=== PATIENT | female | born 1960 | race African-American/Black ===

== ENCOUNTER 2022-05-09 16:37 | Outpatient (CLI) | payer BC ==
[2022-05-09 17:45] LABS: Hemoglobin 13.3 g/dL (12.0-15.5); Mean Corpuscular HGB CONC 35.4 g/dL (32.0-36.0); Mean Corpuscular Hemoglobin 38.2 pg (27.0-33.0); Mean Platelet Volume 9.4 fl (7.4-10.4); Platelet Count 339 10x3/uL (150-450); RBC Distribution Width 15.4 % (11.5-14.5); Red Blood Cell (RBC) Count 3.48 10x6/uL (3.90-5.03); White Blood Cell (WBC) Count 8.4 10x3/uL (3.5-10.5)
[2022-05-09 17:51] LABS: Anion Gap 16 mmol/L (10-20); BUN (Urea Nitrogen) 16 mg/dL (9.8-20.1); Calc. Creatinine Clearance 0 mL/min (70-130); Calcium 9.8 mg/dL (7.8-10.44); Carbon Dioxide 25 mmol/L (22-29); Chloride 103 mmol/L (98-107); Estimated GFR 57; Glucose 94 mg/dL (70-105); Potassium 5.1 mmol/L (3.5-5.1); Sodium 139 mmol/L (136-145)
== END 2022-05-09 16:38 | disposition home or self-care (01) ==
LOC: LABBT 16:37
PROVIDERS: ATTEND Neurological Surgery
DX: Z01.818 Encounter for other preprocedural examination (principal); M54.12 Radiculopathy, cervical region
CPT/HCPCS: 80048; 85027; 93005; 93010

== ENCOUNTER 2022-05-13 08:32 | Observation (INO) | payer BC ==
[2022-05-10 13:13] VITALS: BMI 23.1
[2022-05-13] MEDS ORDERED: fentaNYL PF 100 MCG/2 ML SYRINGE ONE ×2 (11:54→13:13)
[2022-05-13] MEDS ORDERED: CEFAZOLIN 2 GM VIAL ONE (12:04)
[2022-05-13] MEDS ORDERED: Sodium Chloride 0.9% 100 ML ONE (12:04)
[2022-05-13] MEDS ORDERED: PROPOFOL 200 MG/20 ML VIAL ONE (12:18)
[2022-05-13] MEDS ORDERED: NEOSTIGMINE 3 MG/3 ML SYR 3 MG/3 ML SYRINGE ONE (12:18)
[2022-05-13] MEDS ORDERED: PHENYLEPHRINE-NS 100 MCG/ML 10 ML SYRINGE ONE (12:18)
[2022-05-13] MEDS ORDERED: Rocuronium Bromide 10 MG/ML (10ML VIAL) ONE (12:18)
[2022-05-13] MEDS ORDERED: Ondansetron PF 4 MG/2 ML Vial ONE (12:18)
[2022-05-13] MEDS ORDERED: Glycopyrrolate 0.2 MG/ML 5 ML SYRINGE ONE (12:18)
[2022-05-13] MEDS ORDERED: ePHEDrine 50 MG/ML VIAL ONE (12:18)
[2022-05-13] MEDS ORDERED: Dexamethasone 20 MG/5 ML VIAL ONE (12:18)
[2022-05-13 12:35] LABS: SARS-CoV-2 NAA Rapid Test Not Detected (NotDetected)
[2022-05-13] MEDS ORDERED: traMADol HCl 50 MG TAB PO PRN (13:25)
[2022-05-13] MEDS ORDERED: Ondansetron PF 4 MG/2 ML Vial IVP PRN (13:25)
[2022-05-13] MEDS ORDERED: Milk Of Magnesia 30 ML UDCUP PO PRN (13:25)
[2022-05-13] MEDS ORDERED: Mag-Al 1200 mg/1200 mg/30 ML UDCUP PO PRN (13:25)
[2022-05-13] MEDS ORDERED: Acetaminophen/Codeine 30-300mg Tablet PO PRN (13:25)
[2022-05-13] MEDS ORDERED: Promethazine 25 MG TAB PO PRN (13:25)
[2022-05-13] MEDS ORDERED: diphenhydrAMINE 25 MG CAP PO PRN (13:25)
[2022-05-13] MEDS ORDERED: CEFAZOLIN 2 GM in Sodium Chloride 0.9% 100 ML IVPB SCH (13:30)
[2022-05-13] MEDS ORDERED: Ondansetron HCl/PF 4 MG/2 ML Vial IVP PRN (13:42)
[2022-05-13] MEDS ORDERED: Promethazine HCl 25 MG/ML VIAL IVPB PRN (13:42)
[2022-05-13] MEDS ORDERED: Promethazine HCl 25 MG/ML VIAL IM PRN (13:42)
[2022-05-13] MEDS ORDERED: FENTANYL 50 MCG/ML 1 ML VIAL ONE ×3 (13:51→14:08)
[2022-05-13] MEDS: Sodium Chloride 0.9% 1,000 ML IV SCH (14:55)
[2022-05-13] MEDS: Acetaminophen/Codeine 30-300mg Tablet PO PRN (15:02)
[2022-05-13] MEDS: Morphine 4 MG/ML VIAL SLOW IVP PRN ×2 (15:02→20:27)
[2022-05-13] MEDS: Cyclobenzaprine 10 MG TAB PO PRN (17:10)
[2022-05-13] MEDS: Gabapentin 300 MG CAP PO SCH ×2 (17:10→20:23)
[2022-05-13] MEDS: CEFAZOLIN 2 GM in Sodium Chloride 0.9% 100 ML IVPB SCH (20:22)
[2022-05-14] MEDS: Acetaminophen/Codeine 30-300mg Tablet PO PRN ×2 (00:34→08:04)
[2022-05-14] MEDS: Sodium Chloride 0.9% 1,000 ML IV SCH (02:50)
[2022-05-14] MEDS: Cyclobenzaprine 10 MG TAB PO PRN (04:30)
[2022-05-14] MEDS: CEFAZOLIN 2 GM in Sodium Chloride 0.9% 100 ML IVPB SCH (04:30)
[2022-05-14] MEDS ORDERED: Levothyroxine Sodium 50 MCG TAB PO SCH (06:00)
[2022-05-14] MEDS: Gabapentin 300 MG CAP PO SCH (08:04)
[2022-05-14 08:12] VITALS: BP 138/88; TEMP 97.1
== END 2022-05-14 08:30 | disposition home or self-care (01) ==
LOC: SDC 08:32 → SJJU 15:01
PROVIDERS: ADMIT Neurological Surgery; ATTEND Neurological Surgery
PROC: 0RG20A0 Fusion of 2 or more Cervical Vertebral Joints with Interbody Fusion Device, Anterior Approach, Anterior Column, Open Approach (ICD-10-PCS; principal; 2022-05-13)
DX: M50.121 Cervical disc disorder at C4-C5 level with radiculopathy (principal); M48.02 Spinal stenosis, cervical region; K21.9 Gastro-esophageal reflux disease without esophagitis; F17.290 Nicotine dependence, other tobacco product, uncomplicated; Z79.890 Hormone replacement therapy; Z79.899 Other long term (current) drug therapy; Z88.2 Allergy status to sulfonamides; Z20.822 Contact with and (suspected) exposure to COVID-19
CPT/HCPCS: 96374; 96375; 96376; C1713; G0378; J1100; J2270; J2405; J2704; J3010; J3490; U0002

== ENCOUNTER 2022-05-30 12:55 | Outpatient (CLI) | payer BC | END 2022-05-30 12:56 | disposition home or self-care (01) | LOC: TBSIIMAG 12:55 | PROVIDERS: ATTEND Neurological Surgery | DX: M47.22 Other spondylosis with radiculopathy, cervical region (principal); Z98.1 Arthrodesis status | CPT/HCPCS: 72040 ==

== ENCOUNTER 2022-11-07 09:07 | Outpatient (CLI) | payer BC | END 2022-11-07 09:08 | disposition home or self-care (01) | LOC: SCSMRI 09:07 | PROVIDERS: ATTEND Family Medicine | DX: M47.26 Other spondylosis with radiculopathy, lumbar region (principal); R29.890 Loss of height; M46.06 Spinal enthesopathy, lumbar region; M47.817 Spondylosis without myelopathy or radiculopathy, lumbosacral region; M51.16 Intervertebral disc disorders with radiculopathy, lumbar region; K60.2 Anal fissure, unspecified; M51.27 Other intervertebral disc displacement, lumbosacral region | CPT/HCPCS: 72100; 72148 ==

== ENCOUNTER 2023-06-27 13:01 | Outpatient (CLI) | payer BC | END 2023-06-27 13:02 | disposition home or self-care (01) | LOC: SCSRAD 13:01 | PROVIDERS: ATTEND Physician Assistant | DX: R07.89 Other chest pain (principal) | CPT/HCPCS: 71046 ==

== ENCOUNTER 2023-07-25 05:56 | Inpatient (IN) | payer BC ==
[2023-07-25 06:45] LABS: #Basophils 0.1 thou/uL (0.0-0.2); #Eosinphils 0.2 thou/uL (0.0-0.7); #Monocytes 1.4 thou/uL (0.11-0.59); #Neutrophils 8.9 thou/uL (1.40-6.50); %Basophils 0.7 % (0.0-1.0); %Eosinophils 1.5 % (0.0-10.0); %Lymphocytes 22.1 % (21.0-51.0); %Monocytes 9.9 % (0.0-10.0); %Neutrophils 64.6 % (42.0-75.0); Hematocrit 39.4 % (36.0-47.0); Hemoglobin 13.6 g/dL (12.0-16.0); Mean Corpuscular HGB CONC 34.5 g/dL (32.0-36.0); Mean Corpuscular Hemoglobin 39.2 pg (27.0-31.0); Mean Corpuscular Volume 113.5 fl (78.0-98.0); Mean Platelet Volume 9.5 fL (7.4-10.4); Platelet Count 335 10x3/uL (130-400); RBC Distribution Width 15.6 % (11.5-14.5); Red Blood Cell (RBC) Count 3.47 mill/uL (4.20-5.40); White Blood Cell (WBC) Count 13.7 10x3/uL (4.8-10.8)
[2023-07-25] MEDS ORDERED: PROPOFOL 20 ML ONE (07:00)
[2023-07-25] MEDS ORDERED: Lidocaine 1% PF 5 ML VIAL ONE (07:03)
[2023-07-25 07:09] LABS: ALT (SGPT) 21 U/L (8-55); AST (SGOT) 37 U/L (5-34); Alkaline Phosphatase 122 U/L (40-110); Anion Gap 13 mmol/L (10-20); BUN (Urea Nitrogen) 4 mg/dL (9.8-20.1); Bilirubin, Total 0.5 mg/dL (0.2-1.2); Calc. Creatinine Clearance 0 mL/min (70-130); Calcium 8.5 mg/dL (7.8-10.44); Carbon Dioxide 29 mmol/L (23-31); Chloride 101 mmol/L (98-107); Estimated GFR 66; Globulin 3.1 g/dL (2.4-3.5); Glucose 89 mg/dL (80-115); Potassium 3.8 mmol/L (3.5-5.1); Protein, Total 6.1 g/dL (5.8-8.1); Sodium 139 mmol/L (136-145)
[2023-07-25 07:19] LABS: CellaVision Operator ID LAB.KW3; Platelet Adequacy Comment Platelets Normal; Polychromasia SLIGHT = 2-3 cells HPF (0-2)
[2023-07-25] MEDS ORDERED: CEFAZOLIN 2 GM VIAL ONE (08:51)
[2023-07-25] MEDS ORDERED: Sodium Chloride 0.9% 100 ML ONE (08:51)
[2023-07-25] MEDS ORDERED: fentaNYL PF 100 MCG/2 ML SYRINGE ONE (09:19)
[2023-07-25] MEDS ORDERED: Ondansetron PF 4 MG/2 ML Vial ONE (09:20)
[2023-07-25] MEDS ORDERED: Dexamethasone 20 MG/5 ML VIAL ONE (09:20)
[2023-07-25] MEDS ORDERED: Lidocaine 1% (PF) 30 ML VIAL ONE (09:32)
[2023-07-25] MEDS ORDERED: Ipratropium/Albuterol 3 ML NEB NEB PRN (10:57)
[2023-07-25] MEDS ORDERED: Promethazine HCl 25 MG/ML VIAL IM PRN ×2 (10:57→11:04)
[2023-07-25] MEDS ORDERED: Ondansetron PF 4 MG/2 ML Vial IVP PRN (10:57)
[2023-07-25] MEDS ORDERED: traMADol HCl 50 MG TAB PO PRN (10:57)
[2023-07-25] MEDS ORDERED: Ondansetron HCl/PF 4 MG/2 ML Vial IVP PRN (11:04)
[2023-07-25] MEDS ORDERED: Promethazine HCl 25 MG SUPP PR PRN (11:28)
[2023-07-25] MEDS: traMADol HCl 50 MG TAB PO PRN ×2 (12:49→18:18)
[2023-07-25] MEDS: Acetaminophen 500 MG TAB PO SCH ×3 (12:51→23:40)
[2023-07-25 12:55] VITALS: BMI 21.9
[2023-07-25 14:31] LABS: INR-International Normal Ratio 1.2; Prothrombin Time 14.8 sec (12.0-14.7)
[2023-07-25 14:32] LABS: PTT 29.5 sec (22.9-36.1)
[2023-07-25] MEDS: Gabapentin 300 MG CAP PO SCH ×2 (15:23→20:11)
[2023-07-25] MEDS: CEFAZOLIN 2 GM in Sodium Chloride 0.9% 100 ML IVPB SCH (18:17)
[2023-07-25] MEDS: Ketorolac Tromethamine 30 MG (1 mL) VIAL IVP PRN (20:11)
[2023-07-25] MEDS: oxyCODONE 5 MG TAB PO PRN ×2 (20:11→23:41)
[2023-07-25] MEDS: Atorvastatin Calcium 20 MG TAB PO SCH (20:11)
[2023-07-26] MEDS: CEFAZOLIN 2 GM in Sodium Chloride 0.9% 100 ML IVPB SCH ×3 (01:44→17:24)
[2023-07-26] MEDS: Ketorolac Tromethamine 30 MG (1 mL) VIAL IVP PRN ×3 (01:47→15:17)
[2023-07-26] MEDS: Levothyroxine Sodium 50 MCG TAB PO SCH (05:24)
[2023-07-26] MEDS: Acetaminophen 500 MG TAB PO SCH ×3 (05:24→17:24)
[2023-07-26] MEDS: oxyCODONE 5 MG TAB PO PRN ×4 (05:25→22:06)
[2023-07-26 08:02] LABS: Anion Gap 13 mmol/L (10-20); BUN (Urea Nitrogen) 4 mg/dL (9.8-20.1); Calc. Creatinine Clearance 64 mL/min (70-130); Calcium 7.6 mg/dL (7.8-10.44); Carbon Dioxide 25 mmol/L (23-31); Chloride 104 mmol/L (98-107); Estimated GFR 79; Glucose 85 mg/dL (80-115); Potassium 4.6 mmol/L (3.5-5.1); Sodium 137 mmol/L (136-145)
[2023-07-26] MEDS: Aspirin Chewable 81 MG TAB PO SCH (08:56)
[2023-07-26] MEDS: Gabapentin 300 MG CAP PO SCH ×3 (08:56→21:03)
[2023-07-26 12:01] LABS: #Basophils 0.1 thou/uL (0.0-0.2); #Neutrophils 7.5 thou/uL (1.40-6.50); %Basophils 0.4 % (0.0-1.0); %Eosinophils 0.1 % (0.0-10.0); %Monocytes 8.4 % (0.0-10.0); %Neutrophils 66.2 % (42.0-75.0); Hematocrit 33.9 % (36.0-47.0); Hemoglobin 11.6 g/dL (12.0-16.0); Mean Corpuscular HGB CONC 34.2 g/dL (32.0-36.0); Mean Corpuscular Volume 116.9 fl (78.0-98.0); Platelet Count 216 10x3/uL (130-400); RBC Distribution Width 15.7 % (11.5-14.5); White Blood Cell (WBC) Count 11.3 10x3/uL (4.8-10.8)
[2023-07-26 12:38] LABS: Platelet Adequacy Comment Platelets Normal
[2023-07-26] MEDS: Enoxaparin 40 MG (0.4 mL) SYRINGE SC SCH (21:03)
[2023-07-26] MEDS: Atorvastatin Calcium 20 MG TAB PO SCH (21:04)
[2023-07-27] MEDS: Acetaminophen 500 MG TAB PO SCH ×5 (00:31→23:19)
[2023-07-27] MEDS: CEFAZOLIN 2 GM in Sodium Chloride 0.9% 100 ML IVPB SCH ×2 (00:31→09:32)
[2023-07-27] MEDS: Ketorolac Tromethamine 30 MG (1 mL) VIAL IVP PRN ×4 (00:32→21:19)
[2023-07-27] MEDS: oxyCODONE 5 MG TAB PO PRN ×4 (05:47→21:19)
[2023-07-27] MEDS: Levothyroxine Sodium 50 MCG TAB PO SCH (05:47)
[2023-07-27 09:21] LABS: #Basophils 0.1 thou/uL (0.0-0.2); #Eosinphils 0.1 thou/uL (0.0-0.7); #Monocytes 0.8 thou/uL (0.11-0.59); #Neutrophils 4.9 thou/uL (1.40-6.50); %Basophils 0.6 % (0.0-1.0); %Eosinophils 0.7 % (0.0-10.0); %Lymphocytes 40.7 % (21.0-51.0); %Monocytes 7.9 % (0.0-10.0); %Neutrophils 49.1 % (42.0-75.0); Hematocrit 32.4 % (36.0-47.0); Hemoglobin 10.9 g/dL (12.0-16.0); Mean Corpuscular HGB CONC 33.6 g/dL (32.0-36.0); Mean Corpuscular Hemoglobin 39.1 pg (27.0-31.0); Mean Corpuscular Volume 116.1 fl (78.0-98.0); Mean Platelet Volume 9.2 fL (7.4-10.4); RBC Distribution Width 15.9 % (11.5-14.5); Red Blood Cell (RBC) Count 2.79 mill/uL (4.20-5.40)
[2023-07-27 09:26] LABS: Platelet Count 367 10x3/uL (130-400)
[2023-07-27] MEDS: Clopidogrel Bisulfate 75 MG TAB PO SCH (09:31)
[2023-07-27] MEDS: Aspirin Chewable 81 MG TAB PO SCH (09:31)
[2023-07-27] MEDS: Gabapentin 300 MG CAP PO SCH ×3 (09:32→21:20)
[2023-07-27 09:42] LABS: Anion Gap 14 mmol/L (10-20); BUN (Urea Nitrogen) 6 mg/dL (9.8-20.1); Calc. Creatinine Clearance 48 mL/min (70-130); Calcium 7.8 mg/dL (7.8-10.44); Carbon Dioxide 21 mmol/L (23-31); Chloride 103 mmol/L (98-107); Estimated GFR 56; Glucose 79 mg/dL (80-115); Potassium 3.6 mmol/L (3.5-5.1); Sodium 134 mmol/L (136-145)
[2023-07-27] MEDS: Atorvastatin Calcium 20 MG TAB PO SCH (21:19)
[2023-07-27] MEDS: Enoxaparin 40 MG (0.4 mL) SYRINGE SC SCH (21:20)
[2023-07-28] MEDS: Ketorolac Tromethamine 30 MG (1 mL) VIAL IVP PRN ×2 (03:24→21:07)
[2023-07-28] MEDS: oxyCODONE 5 MG TAB PO PRN ×4 (03:24→21:05)
[2023-07-28] MEDS: Acetaminophen 500 MG TAB PO SCH ×4 (06:08→21:06)
[2023-07-28] MEDS: Levothyroxine Sodium 50 MCG TAB PO SCH (06:08)
[2023-07-28] MEDS: Clopidogrel Bisulfate 75 MG TAB PO SCH (09:24)
[2023-07-28] MEDS: Aspirin Chewable 81 MG TAB PO SCH (09:24)
[2023-07-28] MEDS: Gabapentin 300 MG CAP PO SCH ×3 (09:24→21:06)
[2023-07-28] MEDS: Enoxaparin 40 MG (0.4 mL) SYRINGE SC SCH (21:05)
[2023-07-28] MEDS: Atorvastatin Calcium 20 MG TAB PO SCH (21:06)
[2023-07-29] MEDS: oxyCODONE 5 MG TAB PO PRN ×3 (03:08→14:51)
[2023-07-29] MEDS: Ketorolac Tromethamine 30 MG (1 mL) VIAL IVP PRN ×2 (03:09→09:47)
[2023-07-29] MEDS: Levothyroxine Sodium 50 MCG TAB PO SCH (05:32)
[2023-07-29] MEDS: Acetaminophen 500 MG TAB PO SCH ×2 (05:32→12:09)
[2023-07-29] MEDS: Aspirin Chewable 81 MG TAB PO SCH (09:44)
[2023-07-29] MEDS: Clopidogrel Bisulfate 75 MG TAB PO SCH (09:44)
[2023-07-29] MEDS: Gabapentin 300 MG CAP PO SCH ×2 (09:45→14:50)
[2023-07-29 11:46] VITALS: BP 130/87; TEMP 98.2
== END 2023-07-29 16:08 | DRG 241 ==
LOC: ERS 05:56 → SDC 07:42 → SURG A 10:57
PROVIDERS: ADMIT Student in an Organized Health Care Education/Training Program; ATTEND Student in an Organized Health Care Education/Training Program
PROC: 0Y6J0Z3 Detachment at Left Lower Leg, Low, Open Approach (ICD-10-PCS; principal; 2023-07-25)
DX: I70.262 Atherosclerosis of native arteries of extremities with gangrene, left leg (principal); E03.9 Hypothyroidism, unspecified; F17.210 Nicotine dependence, cigarettes, uncomplicated; Z88.2 Allergy status to sulfonamides; Z79.890 Hormone replacement therapy; Z79.899 Other long term (current) drug therapy; Z79.82 Long term (current) use of aspirin; Z90.710 Acquired absence of both cervix and uterus; Z98.890 Other specified postprocedural states
CPT/HCPCS: 36415; 71045; 80048; 80053; 85025; 85610; 85730; 86850; 86900; 86901; 88307; 93005; J1100; J1650; J1885; J2001; J2405; J2704; J3490

== ENCOUNTER 2024-03-31 08:47 | Outpatient (CLI) | payer OTHER | END 2024-03-31 08:48 | disposition home or self-care (01) | LOC: SCSMRI 08:47 | PROVIDERS: ATTEND Internal Medicine | DX: M54.51 Vertebrogenic low back pain (principal); M47.816 Spondylosis without myelopathy or radiculopathy, lumbar region; M51.369 Other intervertebral disc degeneration, lumbar region without mention of lumbar back pain or lower extremity pain | CPT/HCPCS: 72148 ==